=== PATIENT | male | born 1995 | race Caucasian/White ===

== ENCOUNTER 2016-06-30 07:25 | Emergency (ER) | payer OTHER ==
--- NOTE | 2016-06-30 07:34 | UCPHY ---
H & P Time Seen by Provider: 06/30/16 07:33 Patient Type: New HPI/ROS: CHIEF COMPLAINT: Cough, unable to sleep, vomiting HISTORY OF PRESENT ILLNESS: 20-year-old male presents reporting that he has had a cough for 4 days. Recent exposure to strep. Reports a sore throat mostly caused by a frequent cough. Unable to sleep at night secondary to significant coughing. No ear pain. No fever. Mild nasal congestion. No chest pain or shortness of breath. No fever, chills, chest pain, shortness of breath, palpitations, diarrhea, urinary complaints, headache, lightheadedness. REVIEW OF SYSTEMS: Aside from elements discussed in the HPI, a comprehensive 10-point review of systems was reviewed and is negative. PAST MEDICAL HISTORY: Type 2 diabetes, bipolar disorder. SOCIAL HISTORY: Nonsmoker. VITAL SIGNS: see nurse's notes. GENERAL: Well-developed, well-nourished, in no acute distress. HEENT: Atraumatic Eyes: PERRL, EOMI, no conjunctival injection. Ears: TM clear bilaterally. Nose: No discharge. Mouth: moist mucous membranes. Pharynx: Moderate erythema, no exudates, no swelling, no abscess. Uvula is midline. NECK: Supple, no adenopathy, no meningismus, no tenderness. Negative Kernig's and Brudzinski's. LUNGS: diminished breath sounds bilaterally, no wheezes, rhonchi or rales. CARDIAC: Regular rate and rhythm, no rubs, murmurs or gallops. ABDOMEN: Soft, nontender, bowel sounds normal. BACK: No CVA tenderness. EXTREMITIES: Normal, no edema, FROM. NEURO: Alert and oriented, grossly nonfocal. SKIN: Warm and dry, no rash. PSYCHIATRIC: Normal mentation, no agitation. Constitutional: Initial Vital Signs Temperature (C) 36.6 C 06/30/16 07:41 Heart Rate 62 06/30/16 07:41 Respiratory Rate 18 06/30/16 07:41 Blood Pressure 152/68 H 06/30/16 07:41 O2 Sat (%) 97 06/30/16 07:41 O2 Delivery Mode Room Air Allergies/Adverse Reactions: No Known Allergies Allergy (Unverified 06/30/16 07:38) Home Medications: Medication Instructions Recorded Albuterol Hfa Anes Only [Proair 2 puffs IH QID #1 mdi 06/30/16 Hfa Icu (*)] Benzonatate [Tessalon Pearles (RX)] 100 mg PO TID PRN #20 cap 06/30/16 Deplin-Algal Oil 15 mg Capsule 06/30/16 Integra Capsule 06/30/16 Invirase 06/30/16 Lamictal 06/30/16 Metformin HCl 06/30/16 Medical Decision Making ED Course/Re-evaluation: 20-year-old male with a cough for 4 days. Lungs are clear. Not hypoxic. Not tachypneic. Unable to sleep at night secondary to coughing. Diminished breath sounds. Patient received an albuterol nebulizer treatment in the emergency department. He was discharged with a meter dose inhaler, Tessalon Perles to control the cough, and reassurance. Differential Diagnosis: Differential diagnosis for the patient's cough was considered including but not limited to viral versus bacterial bronchitis, asthma, COPD, pulmonary emboli, upper respiratory infection, lower respiratory infection, and bronchospasm. - Data Points Laboratory Results: 06/30/16 06/30/16 Unknown 07:20 Group A Strep Screen NEGATIVE (NEGATIVE) Group A Strep DNA Pending Departure - Departure Disposition: Home, Routine, Self-Care Clinical Impression: Cough Upper respiratory infection Qualifiers: URI type: unspecified viral URI Qualified Code(s): J06.9 - Acute upper respiratory infection, unspecified; B97.89 - Other viral agents as the cause of diseases classified elsewhere Condition: Good Instructions: Cold Symptoms (ED), Bronchospasm (ED) Additional Instructions: Please use the metered dose inhaler to help control your coughing. Please take the Tessalon Perles as directed to help control the cough. Mainstay of therapy will be to get plenty of rest, drink plenty of fluids, and control your symptoms with [id number] medications. If you have a runny nose, take an antihistamine. If you are congested, take a decongestant. If you have a sore throat, use Tylenol, or ibuprofen. Throat lozenges, throat sprays, or salt water gargles may also be helpful. Follow up with your primary care physician if you continue to have significant nighttime coughing for more than an additional week. Seek care urgently or follow up at urgent care if you develop a fever, worsening symptoms despite the above treatment, shortness of breath, chest pain , vomiting, or other concerns. Prescriptions: Albuterol Hfa Anes Only [Proair Hfa Icu (*)] 2 puffs IH QID #1 mdi Benzonatate [Tessalon Pearles (RX)] 100 mg PO TID PRN #20 cap PRN Reason: Cough - PQRS PQRS Measurement: Not applicable
[2016-06-30 07:46] VITALS: BP 152/68; PULSE 62; RESP 18; TEMP 98; O2SAT 97
[2016-06-30] MEDS ORDERED: ALBUTEROL 3 ML DEYVIAL IH ONE (07:47)
== END 2016-06-30 08:26 | disposition home or self-care (01) ==
LOC: CED 07:25
DX: J06.9 Acute upper respiratory infection, unspecified (principal); B97.89 Other viral agents as the cause of diseases classified elsewhere; E11.9 Type 2 diabetes mellitus without complications
CPT/HCPCS: 87880-PO; 99203-PO; G0463-PO